=== PATIENT | female | born 2000 | race Caucasian/White ===

== ENCOUNTER 2021-11-26 06:31 | Emergency (ER) | payer OTHER ==
[~2021-11-26] VITALS: Ht 167.6 cm; Wt 107.1 kg
--- NOTE | 2021-11-26 07:10 | PHYS DOC ---
Past History Past Surgical History: Appendectomy General Adult EDM: Chief Complaint: ABDOMINAL PAIN HPI: HPI: Patient is a 21-year-old female coming in for 2 days of abdominal pain and diarrhea. Patient states he pain is epigastric. States it is a sharp pain that was initially intermittent but now has been constant. Has had some nausea but no vomiting. History of an appendectomy. Patient states the pain is unchanged by food. No recent travel, sick contacts raw or undercooked foods. Review of Systems: Review of Systems: All other systems within normal limits except for as noted in the HPI Physical Exam: PE: Constitutional: Well developed, well nourished, no acute distress, non-toxic appearance. [] HENT: Normocephalic, atraumatic, bilateral external ears normal, nose normal. [] Eyes: PERRLA, conjunctiva normal, no discharge. [] Neck: No rigidity, supple, no stridor. [] Cardiovascular: Regular rate and rhythm, brisk cap refill [] Lungs & Thorax: Non labored symmetric respirations, no tachypnea or respiratory distress [] Abdomen: Soft, nondistended, epigastric tenderness, negative Mann's. Skin: Warm, dry, no erythema, no rash. [] Back: Unremarkable Extremities: No deformities, range of motion grossly intact, no lower extremity edema [] Neurologic: Alert and oriented X 3, no focal deficits noted. [] Psychologic: Affect normal, judgement normal, mood normal. [] Current Patient Data: Vital Signs: Vital Signs Date Time Temp Pulse Resp B/P (MAP) Pulse Ox O2 Delivery O2 Flow Rate FiO2 11/26/21 06:42 109 20 129/90 (103) 96 Room Air EKG: EKG: [] Radiology/Procedures: Radiology/Procedures: [][address] [address] IMAGING REPORT Signed PATIENT: DIONICIO WOOD ACCOUNT: [id number] : 2000 LOCATION: ER AGE: 21 SEX: F EXAM STATUS: REG ER ORD. PHYSICIAN: MARRY GARZA MD REASON: upper abd pain PROCEDURE: CT ABD PELV W/ IV CONTRST ONLY CT ABDOMEN+PELVIS W History: Upper abdominal pain Comparison: None. Technique: CT of the abdomen and pelvis with intravenous contrast. Findings: No significant airspace consolidation. No pleural or pericardial effusion. The liver, gallbladder, pancreas, spleen, adrenal glands, and kidneys are within normal limits. The stomach and small bowel are within normal limits. Postsurgical changes the cecum from prior appendectomy. No colonic wall thickening or pericolonic inflammatory changes. The bladder is relatively decompressed. The uterus and adnexa are within normal limits. There is no intra-abdominal free air or free fluid. No adenopathy. Vasculature is within normal limits. Soft tissues and osseous structures are unremarkable. Impression: 1. No acute findings in the abdomen and pelvis. ------ Exposure: One or more of the following individualized dose reduction techniques were utilized for this examination: 1. Automated exposure control 2. Adjustment of the mA and/or kV according to patient size 3. Use of iterative reconstruction technique. Electronically signed by: Stephen oRberts MD (11/26/2021 8:02 AM) [id number] DICTATED AND SIGNED BY: STEPHEN ROBERTS MD DATE: 11/26/21 0758 CC: MARRY GARZA MD; PCP,UNKNOWN ~ Heart Score: C/O Chest Pain: No Risk Factors: Risk Factors: DM, Current or recent (<one month) smoker, HTN, HLP, family history of CAD, obesity. Risk Scores: Score 0 - 3: 2.5% MACE over next 6 weeks - Discharge Home Score 4 - 6: 20.3% MACE over next 6 weeks - Admit for Clinical Observation Score 7 - 10: 72.7% MACE over next 6 weeks - Early Invasive Strategies Course & Med Decision Making: Course & Med Decision Making Pertinent Labs and Imaging studies reviewed. (See chart for details) Pain improved with GI cocktail [] Dragon Disclaimer: Dragon Disclaimer: This electronic medical record was generated, in whole or in part, using a voice recognition dictation system. Departure Departure: Impression: Primary Impression: Abdominal pain Disposition: HOME / SELF CARE / HOMELESS Condition: STABLE Referrals: PCP,UNKNOWN (PCP) Patient Instructions: Diet for Diarrhea, Adult Scripts Sucralfate (CARAFATE) 1 Gm Tablet 1 TAB PO QID PRN for ABDOMINAL CRAMPS for 10 Days, #40 TAB 0 Refills Prov: MARRY GARZA MD 11/26/21 Famotidine (FAMOTIDINE) 40 Mg Tablet 1 TAB PO DAILY for antacid, #30 TAB 3 Refills Prov: MARRY GARZA MD 11/26/21 Ondansetron (ONDANSETRON ODT) 4 Mg Tab.rapdis 1 TAB PO PRN Q6-8HRS PRN for NAUSEA, #16 TAB Prov: MARRY GARZA MD 11/26/21 MARRY GARZA MD Nov 26, 2021 07:10
[2021-11-26] MEDS: ONDANSETRON PF 4 MG/2 ML VIAL. IVP ONE (07:15)
[2021-11-26] MEDS: IOHEXOL 300 MG/ML 75 ML VIAL. IV ONE (07:36)
[2021-11-26 07:50] LABS: BASO % 1 % (0-3); EOS % 1 % (0-3); HEMATOCRIT 41.6 % (36.0-47.0); LYMPH # 1.6 x10^3/uL (1.0-4.8); LYMPH % 21 % (24-48); MEAN CORPUSCULAR HEMOGLOBIN 30 pg (25-35); MEAN CORPUSCULAR HGB CONC 34 g/dL (31-37); MEAN CORPUSCULAR VOLUME 89 fL (79-100); MONO # 0.5 x10^3/uL (0.0-1.1); MONO % 7 % (0-9); NEUT # 5.4 x10^3uL (1.8-7.7); NEUT % 71 % (31-73); PLATELET COUNT 278 x10^3/uL (140-400); RED BLOOD COUNT 4.66 x10^6/uL (3.50-5.40); RED CELL DISTRIBUTION WIDTH 13.1 % (11.5-14.5); WHITE BLOOD COUNT 7.7 x10^3/uL (4.0-11.0)
[2021-11-26 08:02] LABS: CALCIUM 9.2 mg/dL (8.5-10.1); CREATININE 0.8 mg/dL (0.6-1.0); GFR 88.9; POTASSIUM 3.7 mmol/L (3.5-5.1)
[2021-11-26 08:04] VITALS: BP 116/83
--- NOTE | 2021-11-26 08:05 | RAD ---
CT ABDOMEN+PELVIS W History: Upper abdominal pain Comparison: None. Technique: CT of the abdomen and pelvis with intravenous contrast. Findings: No significant airspace consolidation. No pleural or pericardial effusion. The liver, gallbladder, pa ncreas, spleen, adrenal glands, and kidneys are within normal limits. The stomach and small bowel are within normal limits. Postsurgical changes the cecum from prior appendectomy. No colonic wall thicke karan or pericolonic inflammatory changes. The bladder is relatively decompressed. The uterus and adne xa are within normal limits. There is no intra-abdominal free air or free fluid. No adenopathy. Vascu lature is within normal limits. Soft tissues and osseous structures are unremarkable. Impression: 1. No acute findings in the abdomen and pelvis. ------ Exposure: One or more of the following individualized dose reduction techniques were utilized for thi s examination: 1. Automated exposure control 2. Adjustment of the mA and/or kV according to patient size 3. Use of iterative reconstruction technique. Electronically signed by: Stephen Truong MD (11/26/2021 8:02 AM) [id number]
[2021-11-26] MEDS: IV NORMAL SALINE 1,000ML 1,000 ML IV ONE (08:06)
[2021-11-26] MEDS: KETOROLAC 15 MG/ML VIAL. IVP ONE (08:07)
[2021-11-26 08:08] LABS: ALBUMIN 4.3 g/dL (3.4-5.0); ALBUMIN/GLOBULIN RATIO 1.2 (1.0-1.7); TOTAL BILIRUBIN 0.4 mg/dL (0.2-1.0); TOTAL PROTEIN 7.9 g/dL (6.4-8.2)
[2021-11-26] MEDS: LIDO:MAALOX 1:1 20 ML SINGLE DOSE. PO ONE (09:30)
[2021-11-26 09:43] LABS: CLARITY,URINE CLEAR; COLOR,URINE AMBER
[2021-11-26 09:44] LABS: BACTERIA,URINE 0 /HPF (0-FEW); GLUCOSE,URINE NEG (NEG); NITRITE,URINE NEG (NEG); RBC,URINE RARE /HPF (0-2); SQUAMOUS EPITHELIAL CELL,UR MOD /LPF; UROBILINOGEN,URINE 0.2 mg/dL (0.2 mg/dL); WBC,URINE RARE /HPF (0-4)
[2021-11-26] MEDS: FAMOTIDINE 20 MG/2 ML VIAL IVP ONE (10:30)
[2021-11-26] MEDS ORDERED: SUCR1TAB35 PO (10:34)
[2021-11-26] MEDS ORDERED: ONDA4TAB12 PO (10:34)
[2021-11-26] MEDS ORDERED: FAMO40TA4 PO (10:34)
== END 2021-11-26 11:18 | disposition home or self-care (01) ==
LOC: ER 06:31
DX: R10.13 Epigastric pain (principal); R19.7 Diarrhea, unspecified; R11.0 Nausea; Z90.89 Acquired absence of other organs
CPT/HCPCS: 36415; 74177; 80053; 81001; 81025; 83605; 83690; 85025; 96361; 96374; 96375; 99285; J1885; J2405; J3490; J7030; Q9967